=== PATIENT | male | born 1995 | race Caucasian/White ===

== ENCOUNTER 2016-11-09 01:42 | Inpatient (IN) | payer OTHER ==
[~2016-11-09] VITALS: Ht 182.9 cm; Wt 75.2 kg
[~2016-11-09 01:42] MED LIST: CLEOCIN HCL300 MG PO; COLACE100 MG PO; GALZIN25 MG PO; HYDROCODON-ACE1 EAC7 PO; MED FOR ACNE; MEDROL DOSPAK21 TAB PO; MINOCIN50 MG PO; MULTI-VITAMIN1 EAC5 PO; NOHOMEMEDICATIONS; NORCO 5-325 TA1 EACH PO; SAW PALMETTO PO; TRAMADOL 50 MG50 MG PO; VITAMIN A PO; ZPAK PO
[2016-11-09 01:45] VITALS: BP 142/87
[2016-11-09 02:04] LABS: URINE BILIRUBIN NEGATIVE (Negative); URINE BLOOD NEGATIVE (Negative); URINE COLOR YELLOW; URINE GLUCOSE-RANDOM* NEGATIVE (Negative); URINE KETONES NEGATIVE (Negative); URINE LEUKOCYTES-REFLEX NEGATIVE (Negative); URINE PROTEIN (DIPSTICK) TRACE (Negative); URINE SPECIFIC GRAVITY 1.025 (1.003-1.035); URINE UROBILINOGEN 0.2 E.U./dl (0.2-1.0)
[2016-11-09 02:06] LABS: BASOPHILS 0.8 % (0.0-2.0); EOSINOPHILS 0.1 % (0.0-3.0); HEMATOCRIT 48.4 % (42.0-52.0); HEMOGLOBIN 16.5 gm/dL (14.0-18.0); LYMPHOCYTES 15.9 % (24.0-44.0); MCH 30.8 pg (26.0-34.0); MCHC 34.1 g/dL (28.0-37.0); MCV 90.4 fL (80.0-100.0); MONOCYTES 6.6 % (1.0-8.0); PLATELET COUNT 320 thou/uL (150-400); POLYS 76.6 % (36.0-66.0); RBC 5.36 mil/uL (4.50-6.00); RDW 12.4 % (10.5-14.5)
[2016-11-09 02:10] LABS: MANUAL DIFF NO
[2016-11-09 02:14] LABS: CALCIUM 9.3 mg/dL (8.5-10.1); CREATININE 1.2 mg/dL (0.7-1.3); POTASSIUM 3.3 mmol/L (3.5-5.1)
[2016-11-09 02:20] LABS: ALBUMIN 4.6 g/dL (3.4-5.0); DIRECT BILIRUBIN 0.2 mg/dL (<0.1-0.3); TOTAL BILIRUBIN 0.7 mg/dL (<0.1-1.0); TOTAL PROTEIN 7.9 g/dL (6.4-8.2)
[2016-11-09 03:30] VITALS: BP 128/73
[2016-11-09 04:00] VITALS: BP 137/80
[2016-11-09] MEDS ORDERED: UNICOMPLEX M TA1 TA1 PO (04:08)
[2016-11-09 08:26] VITALS: BP 132/76
[2016-11-09 11:34] LABS: CHOLESTEROL 108 mg/dL (<200); HDL CHOLESTEROL 43 mg/dL (>40); LDL CHOLESTEROL 49 mg/dL (<100); TC:HDL 2.5 Ratio (Not establshd); TRIGLYCERIDE 83 mg/dL (<150); VLDL 17 mg/dL (<40)
[2016-11-09 18:04] VITALS: BP 132/70
[2016-11-09 20:00] VITALS: BP 126/71
[2016-11-10 03:19] LABS: ABSOLUTE NEUTROPHILS 7.3 thou/uL (1.4-8.2); BASOPHILS 0.5 % (0.0-2.0); EOSINOPHILS 1.3 % (0.0-3.0); HEMATOCRIT 43.4 % (42.0-52.0); HEMOGLOBIN 14.6 gm/dL (14.0-18.0); LYMPHOCYTES 22.6 % (24.0-44.0); MCH 30.5 pg (26.0-34.0); MCHC 33.6 g/dL (28.0-37.0); MONOCYTES 7.2 % (1.0-8.0); PLATELET COUNT 258 thou/uL (150-400); POLYS 68.4 % (36.0-66.0); RBC 4.77 mil/uL (4.50-6.00); RDW 12.3 % (10.5-14.5); WBC 10.7 thou/uL (4.0-11.0)
[2016-11-10 03:34] LABS: ALBUMIN 3.5 g/dL (3.4-5.0); CALCIUM 8.8 mg/dL (8.5-10.1); CREATININE 0.9 mg/dL (0.7-1.3); POTASSIUM 3.9 mmol/L (3.5-5.1); TOTAL BILIRUBIN 0.8 mg/dL (<0.1-1.0); TOTAL PROTEIN 6.5 g/dL (6.4-8.2)
[2016-11-10 03:57] LABS: MANUAL DIFF NO
[2016-11-10 04:12] VITALS: BP 128/78
[2016-11-10 07:47] VITALS: BP 128/76
[2016-11-10 15:03] VITALS: BP 110/67
[2016-11-10 19:55] VITALS: BP 119/71
[2016-11-11 04:06] VITALS: BP 112/61
[2016-11-11 08:28] VITALS: BP 117/60
[2016-11-11] MEDS ORDERED: HYDROCODON-ACE1 EAC7 PO (10:44)
[2016-11-11 11:34] VITALS: BP 117/60
== END 2016-11-11 13:03 | disposition home or self-care (01) | DRG 440 ==
LOC: ER 01:42 → 4S 03:09 → EROBS 03:09 → 4S 03:31 → ENTRNSPT 11-11 12:44 → EDTRNSPTSTS 11-11 12:47 → 4S 11-11 13:03
PROVIDERS: Emergency Medicine; Hospitalist
DX: K85.20 Alcohol induced acute pancreatitis without necrosis or infection (principal); E87.6 Hypokalemia; Z71.41 Alcohol abuse counseling and surveillance of alcoholic; Z88.5 Allergy status to narcotic agent; Z91.040 Latex allergy status; Z79.899 Other long term (current) drug therapy
CPT/HCPCS: 10102